=== PATIENT | female | born 1975 | race Caucasian/White ===

== ENCOUNTER → 2018-05-21 09:21 | Outpatient (REF) | payer MEDICAID, SELFPAY ==
[2018-05-21 14:53] LABS: ALT 18 U/L (12-78); AST 17 U/L (15-37); Albumin 3.5 g/dL (3.4-5.0); Alkaline Phosphatase 57 U/L (46-116); Anion Gap 8.1 mmol/L (3-11); BUN 19 mg/dL (7-18); Bilirubin, Total 0.3 mg/dL (0.2-1.0); CO2 24.9 mmol/L (21.0-32.0); CREATININE 0.81 mg/dL (0.55-1.02); Calcium 8.4 mg/dL (8.5-10.1); Chloride 106 mmol/L (98-107); Glucose 85 mg/dL (70-100); Potassium 4.1 mmol/L (3.5-5.1); Sodium 139 mmol/L (136-145); Total Protein 6.3 g/dL (6.4-8.2); Vitamin B12 533 pg/mL (193-986)
== END ==
LOC: NCHCN 09:21
PROVIDERS: PCP Nurse Practitioner Adult Health; Visit Provider Family Medicine
DX: D75.89 Other specified diseases of blood and blood-forming organs (principal); E77.8 Other disorders of glycoprotein metabolism
CPT/HCPCS: 80053; 82607

== ENCOUNTER 2018-06-19 10:04 | Outpatient (CLI) | payer MEDICAID, SELFPAY ==
--- NOTE | 2018-06-19 06:00 | DI.RAD_ITS ---
SYMPTOM/DIAGNOSIS: CERVICAL RADICULOPATHY PAIN CLINIC: Fluoroscopy Time: 19.6 Images submitted from the Pain Clinic demonstrate lower cervical spine in conjunction with an injection carried out by Dr. Earl.
[2018-06-19 10:22] VITALS: BP 105/72; PULSE 69; RESP 18; TEMP 36.7; O2SAT 100
[2018-06-19] MEDS: Midazolam 2 MG/2 ML VIAL IVP (10:46)
[2018-06-19] MEDS: Lactated Ringers 1,000 ML 80 ML IV (10:47)
[2018-06-19 10:53] VITALS: BP 122/74; PULSE 74; RESP 19; O2SAT 100
[2018-06-19] MEDS: Omnipaque 240 MG/ML 50 ML BTL IJ (10:55)
[2018-06-19] MEDS: methylPREDNISolone ACETATE 40 MG/ML VIAL IJ (10:55)
--- NOTE | 2018-06-19 10:57 | PDOC.PAIN ---
Pain Clinic Procedure Note Current Active Problems Problem Status Onset Cervical radicular pain Acute Cervical spondylosis Chronic 02/12/14 Cervical Epidural Steroid Injection KAE NOVAK has been referred to the [facility] for cervical epidural steroid injection. COMMENTS: Patient has had previous cervical epidurals as well as cervical radiofrequency ablations. She thinks the epidurals have worked better than the ablation. Her last injection was at [facility] [place] in [place]. Her pain radiates to her left shoulder. Patient was interviewed and the medical record reviewed. There were no medical, pharmacologic, radiographic or other structural contraindications to attempting fluoroscopically guided epidural steroid injection. Risks and expected side effects as well as potential benefit of the procedure were reviewed and voiced concerns addressed. The printed consent form was signed and witnessed. Standard time-out procedure was performed. The patient was placed in the prone position on the fluoroscopy table and automated blood pressure cuff and pulse oximeter applied. The skin entry point for entering the epidural space by a midline C7-T1 interlaminar approach was identified under fluoroscopy and marked. Following thorough Chlorhexadine preparation of the skin and draping and 1% lidocaine infiltration of the skin entry point and subcutaneous tissues, an 17 gauge Tuohy needle was placed under fluoroscopic guidance and with loss of resistance technique into the epidural space. Upon needle placement and loss of resistance there were no paresthesiae or return of blood or CSF through the needle. An Arrow catheter was thread cephalad to the C5 level {left } of midline. 1ml of Omnipaque 240 were injected with clear epidural spread in the A/P, lateral and oblique views. 80mg Depomedrol with 1ml sterile normal saline were injected through the catheter with no unusual discomfort expressed. Vital signs were stable throughout the procedure and were as recorded in the docflowsheet by the nursing staff. If given, dosages of intravenous drugs for anxiolysis and analgesia were documented in MAR. Follow up plans and appointments were discussed. Post procedure instruction was given as documented in nursing documentation and having met discharge criteria and was discharged from the [facility]. COMMENTS: Versed 1 mg given. She will follow-up as needed. We discussed that before her next injection she will need a updated MRI as her last one is over 4 years old. Her pain is mostly axial with the. I would revisit the idea of radiofrequency ablation again. CC: NICA WILDER
--- NOTE | 2018-06-19 11:01 | PDOC.PAIN_ITS ---
Pain Clinic Procedure Note Current Active Problems Problem Status Onset Cervical radicular pain Acute Cervical spondylosis Chronic 02/12/14 Cervical Epidural Steroid Injection KAE NOVAK has been referred to the [facility] for cervical epidural steroid injection. COMMENTS: Patient has had previous cervical epidurals as well as cervical radiofrequency ablations. She thinks the epidurals have worked better than the ablation. Her last injection was at [facility] [place] in [place]. Her pain radiates to her left shoulder. Patient was interviewed and the medical record reviewed. There were no medical , pharmacologic, radiographic or other structural contraindications to attempting fluoroscopically guided epidural steroid injection. Risks and expected side effects as well as potential benefit of the procedure were reviewed and voiced concerns addressed. The printed consent form was signed and witnessed. Standard time-out procedure was performed. The patient was placed in the prone position on the fluoroscopy table and automated blood pressure cuff and pulse oximeter applied. The skin entry point for entering the epidural space by a midline C7-T1 interlaminar approach was identified under fluoroscopy and marked. Following thorough Chlorhexadine preparation of the skin and draping and 1% lidocaine infiltration of the skin entry point and subcutaneous tissues, an 17 gauge Tuohy needle was placed under fluoroscopic guidance and with loss of resistance technique into the epidural space. Upon needle placement and loss of resistance there were no paresthesiae or return of blood or CSF through the needle. An Arrow catheter was thread cephalad to the C5 level {left } of midline. 1ml of Omnipaque 240 were injected with clear epidural spread in the A/P, lateral and oblique views. 80mg Depomedrol with 1ml sterile normal saline were injected through the catheter with no unusual discomfort expressed. Vital signs were stable throughout the procedure and were as recorded in the docflowsheet by the nursing staff. If given, dosages of intravenous drugs for anxiolysis and analgesia were documented in MAR. Follow up plans and appointments were discussed. Post procedure instruction was given as documented in nursing documentation and having met discharge criteria and was discharged from the [facility]. COMMENTS: Versed 1 mg given. She will follow-up as needed. We discussed that before her next injection she will need a updated MRI as her last one is over 4 years old. Her pain is mostly axial with the. I would revisit the idea of radiofrequency ablation again. CC: NICA WILDER
== END 2018-06-19 10:24 ==
PROVIDERS: PCP Nurse Practitioner Adult Health; Visit Provider Anesthesiology Pain Medicine
DX: M47.22 Other spondylosis with radiculopathy, cervical region (principal); G89.29 Other chronic pain
CPT/HCPCS: 62321; 72040; J1030; J2250; Q9967

== ENCOUNTER 2018-09-30 00:38 | Outpatient (CLI) | payer MEDICAID, SELFPAY ==
--- NOTE | 2018-09-30 09:20 | DI.MAMMO_ITS ---
SYMPTOM/DIAGNOSIS: SCREENING, Z12.31, PREVENTATIVE, Z00.00 MAMMOGRAM: Mammograms were interpreted according to the usual protocol including computer analysis with CAD system, tomosynthesis and C view imaging. Comparison with prior examinations. Breast density C. No suspicious masses or microcalcifications are seen. There is no definite evidence of malignancy. IMPRESSION: Negative mammogram. Routine screening is recommended. Category I. MQSA ASSESSMENT OF FINDINGS: Negative. Category 1. Patient will receive a letter notifying them of these results. Bi-RADS category C. The breasts are heterogeneously dense, which may obscure small masses.
== END 2018-09-30 00:58 ==
PROVIDERS: PCP Family Medicine; Visit Provider Family Medicine
DX: Z12.31 Encounter for screening mammogram for malignant neoplasm of breast (principal); Z00.00 Encounter for general adult medical examination without abnormal findings
CPT/HCPCS: 77063; 77067

== ENCOUNTER 2018-11-11 01:12 | Outpatient (CLI) | payer MEDICAID, SELFPAY ==
--- NOTE | 2018-11-11 08:35 | DI.MRI_ITS ---
SYMPTOM/DIAGNOSIS: CERVICAL SPINE STENOSIS, M48.02, CHRONIC NECK PAIN CERVICAL SPINE MRI: Routine noncontrast examination was performed. Comparison is made with 11/03/15. There is normal signal in the spinal cord. No evidence of tonsillar ectopia is seen. At C 6-7, there is again seen prominence of the osteophyte disc complex resulting in narrowing of the central spinal canal which appears roughly unchanged compared to the prior examination. There is also bilateral neural foraminal stenosis, left greater than right. There is slight progression of the neural foraminal stenosis on the left compared to the prior examination. At C 5-6, there is again seen prominence of the osteophyte disc complex and mild narrowing of the central spinal canal. There are degenerative changes of the facets resulting in bilateral neural foraminal stenosis which is mild to moderate. It appears slightly progressed compared to the prior examination. The remaining disc levels show no focal disc herniation, central spinal canal or neural foraminal stenosis. Mild degenerative endplate signal changes are seen at C 5-6 and C 6-7, otherwise marrow signal is within normal limits. IMPRESSION: C 5-6 and C 6-7 degenerative changes resulting in central spinal canal and neural foraminal stenosis which appears slightly progressed since the prior examination as described above.
== END 2018-11-11 01:32 ==
PROVIDERS: PCP Family Medicine; Visit Provider Family Medicine
DX: M54.2 Cervicalgia (principal); M48.02 Spinal stenosis, cervical region; M47.812 Spondylosis without myelopathy or radiculopathy, cervical region
CPT/HCPCS: 72141

== ENCOUNTER 2019-03-13 00:41 | Outpatient (CLI) | payer MEDICAID, SELFPAY ==
--- NOTE | 2019-03-13 11:36 | DI.MRI_ITS ---
SYMPTOM/DIAGNOSIS: DEGENERATIVE JOINT DISEASE, LUMBAR SPINE, M47.896 LUMBAR MRI: Sagittal T1 and T2 and sagittal STIR, and axial T1, T2 and axial lT2 MSMA pulsed sequences were performed. At L1-2 note is made of diminished signal and disc space narrowing and prominent anterior hypertrophic spurring. There is no evidence of a disc protrusion. There are mild facet joint degenerative changes and no evidence of spinal stenosis. At L2-3 diminished disc signal is again identified and minimal disc bulge is noted. There are moderate facet joint degenerative changes and no evidence of spinal stenosis. At L3-4 a disc bulge is demonstrated. There is severe facet joint DJD and no evidence of spinal stenosis. At L4-5 there is a disc bulge. Severe facet joint DJD is evident and there is prominence of the ligamentum flavum. These findings resulting in moderate bilateral foraminal stenosis. At L5-S1 a disc bulge is also identified. There are moderately severe facet joint degenerative changes and no evidence of significant spinal stenosis. SUMMARY: Findings consistent with degenerative disc disease and DJD with multi- level spinal stenosis.
== END 2019-03-13 01:01 ==
PROVIDERS: PCP Family Medicine; Visit Provider Family Medicine
DX: M47.896 Other spondylosis, lumbar region (principal); M51.36 Other intervertebral disc degeneration, lumbar region
CPT/HCPCS: 72148

== ENCOUNTER 2019-08-05 11:58 | Outpatient (CLI) | payer MEDICAID, SELFPAY ==
[2019-08-05 12:04] VITALS: BP 113/75; PULSE 72; RESP 18; TEMP 36.8; O2SAT 98
--- NOTE | 2019-08-05 12:12 | PDOC.PAIN ---
Pain Clinic Procedure Note Procedure Note Procedure Note: PROCEDURE NOTE Transforaminal Epidural Steroid Injection with Fluoroscopic Guidance at RIGHT L4-5 TFESI Chief Complaint: right leg pain. Pre-operative diagnosis: lumbar radiculopathy Post-operative diagnosis: same as above KAE NOVAK has been referred to the [facility] for Lumbar Transforaminal Epidural Steroid Injection right L4-5 TFESI COMMENTS: Pre-procedure VAS: 6/10 to the right leg. Follow up plan: can repeat injection if this provides significant pain relief, if no pain relief, then follow up with Ms Torres's pain outlined from the last clinic visit. KAE NOVAK was greeted by the nurse who verified patients name and . Patient was then taken to the fluoroscopy suite. KAE was interviewed and the medical record reviewed. There were no medical, pharmacologic, radiographic or other structural contraindications to attempting fluoroscopically guided transforaminal lumbar epidural steroid injection. The risks, benefits, and potential side effects were reviewed with the patient. Risk include, but not limited to, post dural puncture, headache, infection, nerve injury, allergic reaction, possible increase in symptoms over the ensuing 24 to 48 hours, and paralysis. The patient appeared to understand, questions were answered and the patient agreed to proceed. Once I obtained informed verbal consent, the printed consent form was signed by the patient and myself. Standard time-out procedure was performed. TECHNIQUE: After informed written consent was obtained the patient was placed in the prone position. The lumbar spine was prepped with chloraprep and draped. Sterile technique was observed during the entire procedure ( cap, gloves, and mask were worn). Vitals signs were monitored throughout the procedure. The right side was marked with a radioopaque marker. The skin and subcutaneous structures were anesthetized with lidocaine 1% to a total volume of 2 ML at each level. Under fluoroscopic guidance, in ipsilateral oblique view, co-axial approach, 5'' 22 gauge spinal needle(s) were advanced to the base of the L4 pedicle(s). The needle(s) were advanced to the superio-posterior aspect of the neural foramen under lateral view. Oblique and AP views were rechecked. Under AP view Omnipaque 240 1.5 cc's was injected while visualized with fluoroscopy. There was no evidence of intravascular uptake, the epidural space was delineated. 15 mg Dexamethasone was injected after negative aspiration, at each level, followed by lidocaine 1% 1.0-ML at each level. (49 cc of Omnipaque was wasted) Outcome: The patient tolerated the procedure well and had stable vital signs. The patient noted after getting up after the procedure that their right leg pain was at a 1 out of 10 level. Follow up plans and appointments were discussed with KAE . The patient was observed in the pain clinic and then discharged after having met discharge criteria to the care of a otr flatbed company truck driver. The patient received written instructions as documented in nursing records. Disposition: KAE was discharged from the procedure suite without new neurological complaints. Follow-up: Follow up with Ms Torres as scheduled or PRN. I personally performed the entire procedure. SHIRA VALENTINE MD ABPN-subspecialty board certification in Pain Medicine Attending Physician-Pain Management
--- NOTE | 2019-08-05 12:41 | DI.RAD_ITS ---
EXAM: XR PAIN CLINIC LUMBAR SP 2V CLINICAL HISTORY: transforaminal epidural steroid injection, lumbar radiculopathy TECHNIQUE: Realtime digital imaging was performed. Fluoro time: 41.6 sec, 7.61 mGy COMPARISON: No exams were available for comparison FINDINGS: Fluoroscopy was utilized by Dr. Kovacs during the performance of a transforaminal epidural steroid inject ion. Please refer to the procedure report for complete details.
[2019-08-05 12:51] VITALS: BP 128/79; PULSE 80; RESP 19; O2SAT 97
[2019-08-05] MEDS: Omnipaque 240 MG/ML 50 ML BTL IJ (12:53)
[2019-08-05] MEDS: Dexamethasone Sod. Phos./Pres-Free 10 MG/ML VIAL IJ (12:53)
== END 2019-08-05 12:18 ==
PROVIDERS: PCP Family Medicine; Visit Provider Internal Medicine
DX: M54.16 Radiculopathy, lumbar region (principal)
CPT/HCPCS: 64483; 72100; Q9967

== ENCOUNTER 2019-09-29 09:36 | Outpatient (REF) | payer MEDICAID, SELFPAY ==
--- NOTE | 2019-09-29 09:15 | PAPFT_PTH ---
PATIENT: Loly Xie LOC: [facility] U#:[id number] AGE/SX: 44/F ROOM: RE09/29/[address]: Scott Agosto : 1975 BED: DIS: 09/29/2019 SPEC #: [id number] RECD: 09/29/19 12:56 STATUS: LUIZA REQ #: [id number] MATTI: 09/29/19 09:[address]: Scott Agosto DEPT: [facility] Cytology RECD BY: Edelmira Jensen Tissues: 1 - CX/ENDOCX FOR PAP SMEARS Procedures: PAP THIN PREP/UVM Screening HPV DNA PROBE Comments: [id number]
[2019-09-29 12:30] LABS: HCT 41.7 % (36.0-46.0); Mean Corp. HGB Concentration 33.6 g/dL (32.0-36.0); Mean Corpuscular Hemoglobin 31.5 pg (27.0-33.0); Mean Corpuscular Volume 93.7 fL (80-95); Mean Platelet Volume 10.3 fL (8.0-11.0); Platelet Count 293 x1000/uL (130-400); RBC 4.45 m/cumm (4.00-5.20); RBC Distribution Width 12.9 % (11.7-14.6); White Blood Cell Count 6.24 k/cumm (4.4-10.8)
[2019-09-29 13:05] LABS: ALT 19 U/L (14-59); AST 16 U/L (15-37); Albumin 3.6 g/dL (3.4-5.0); Alkaline Phosphatase 58 U/L (46-116); Anion Gap 5.9 mmol/L (3-11); BUN 14 mg/dL (7-18); Bilirubin, Total 0.4 mg/dL (0.2-1.0); CO2 30.1 mmol/L (21.0-32.0); CREATININE 0.82 mg/dL (0.55-1.02); Calcium 8.9 mg/dL (8.5-10.1); Chloride 105 mmol/L (98-107); Glucose 86 mg/dL (74-106); Potassium 4.4 mmol/L (3.5-5.1); Sodium 141 mmol/L (136-145); Total Protein 6.4 g/dL (6.4-8.2)
== END 2019-09-29 09:56 ==
LOC: NCHCN 09:36
PROVIDERS: PCP Family Medicine; Visit Provider Family Medicine
DX: N92.0 Excessive and frequent menstruation with regular cycle (principal); E77.8 Other disorders of glycoprotein metabolism; Z12.4 Encounter for screening for malignant neoplasm of cervix
CPT/HCPCS: 80053; 85027; 88142; 87624

== ENCOUNTER 2020-01-08 01:08 | Outpatient (CLI) | payer MEDICAID, SELFPAY ==
--- NOTE | 2020-01-08 | DI.MAMMO_ITS ---
EXAM: DIAGNOSTIC BILATERAL MAMMO AND US BREAST RT LIMITED CLINICAL HISTORY: RT BREAST LUMP, N63.13 TECHNIQUE: Craniocaudal and mediolateral oblique Full Field Digital Mammography views of the both br easts with Computer Aided Diagnosis followed by Tomosynthesis and right breast ultrasound. COMPARISON: Screening Bilat Mammo from 01/23/2014 Diagnostic Right Mammo from 07/29/2014 MG mammo screening from 09/30/2018 FINDINGS: Mammography/Tomosynthesis: Breast Density - Category B - Scattered areas of fibroglandular density Masses/Architectural Distortion: None seen. Microcalcifictions: No suspicious pleomorphic-type are seen. Skin Thickening/Nipple Retraction: None. Axilla: Unremarkable. No enlarged lymph nodes. Right breast US: Echotexture: Normal appearance of the glandular tissue. Shadowing: No suspicious foci. Cyst: None. Solid lesions: None seen. Ductal dilation: None. IMPRESSION: 1. No evidence of malignancy is noted. 2. Unless there is more urgent need, follow-up screening mammography is recommended, as per [place] [employer] guidelines. BI-RADS Category 1 -Negative mammogram. Breast Density - Category B - Scattered areas of fibroglandular density A negative radiographic report should not delay biopsy if a dominant or clinically suspicious mass is present. Up to ten percent of cancers are not identified on mammography. A negative report may reinforce clinical impression. Adenosis and dense breasts may obscure an underlying neoplasm. False positive reports average 6 to 10%. Patient will receive a letter notifying them of these results.
== END 2020-01-08 01:28 ==
PROVIDERS: PCP Family Medicine; Visit Provider Family Medicine
DX: N63.13 Unspecified lump in the right breast, lower outer quadrant (principal)
CPT/HCPCS: 76642; 77062; 77066; G0279

== ENCOUNTER 2020-01-21 10:09 | Outpatient (CLI) | payer MEDICAID, SELFPAY ==
--- NOTE | 2020-01-21 15:05 | DI.RAD_ITS ---
EXAM: XR CHEST 2V PA LATERAL CLINICAL HISTORY: right chest wall pain, R07.89 TECHNIQUE: 2D digital imaging was performed. COMPARISON: No exams were available for comparison FINDINGS: MEDIASTINUM: Normal. HEART: Normal. PULMONARY VASCULATURE: Normal. LUNGS: Clear. PLEURAL SPACE: No pleural effusion or pneumothorax. BONE:Normal. OTHER FINDINGS:Normal. IMPRESSION: No acute pulmonary findings. DATA REPOSITORY: RADIATION DOSE DELIVERED:
== END 2020-01-21 10:29 ==
PROVIDERS: PCP Family Medicine; Visit Provider Surgery
DX: R07.89 Other chest pain (principal)
CPT/HCPCS: 71046

== ENCOUNTER 2020-08-26 10:24 | Outpatient (CLI) | payer MEDICAID, SELFPAY ==
--- NOTE | 2020-08-26 | DI.RAD_ITS ---
EXAM: XR SACROILIAC JOINTS CLINICAL HISTORY: RT SI JOINT PAIN,M53.3. TECHNIQUE: 2D digital imaging was performed. FINDINGS: There is no evidence of fracture nor diastasis of the symphysis pubis and sacroiliac joints. Symmetr ical mild degenerative changes noted but no obvious radiographic evidence of sacroiliitis. No ankylo sis. Incidentally noted are mild degenerative changes in the facet joints in lower lumbar spine. IMPRESSION: No radiographic evidence of sacroiliitis. No ankylosis. DATA REPOSITORY: RADIATION DOSE DELIVERED:
== END 2020-08-26 10:44 ==
PROVIDERS: PCP Family Medicine; Visit Provider Family Medicine
DX: M53.3 Sacrococcygeal disorders, not elsewhere classified (principal)
CPT/HCPCS: 72202

== ENCOUNTER 2020-09-29 13:42 | Outpatient (CLI) | payer MEDICAID, SELFPAY ==
--- NOTE | 2020-09-29 06:00 | DI.RAD_ITS ---
EXAM: XR PAIN CLINIC LUMBAR SP 2V CLINICAL HISTORY: Dx: Lumbar Radiculopathy TECHNIQUE: 2D and realtime digital imaging was performed. CONTRAST MATERIAL: None. COMPARISON: No exams were available for comparison FINDINGS: Fluoroscopy was provided for Dr. Saxena During the performance of a therapeutic lumbar L4 level injecti on. Please refer to the procedure report for complete details. Fluoro time: 24.3 seconds Cumulative dose: 7.31 mGy IMPRESSION:
[2020-09-29 13:49] VITALS: BP 130/73; PULSE 79; RESP 17; TEMP 36.9; O2SAT 98
[2020-09-29] MEDS: Dexamethasone Sod. Phos./Pres-Free 10 MG/ML VIAL IJ (14:28)
[2020-09-29] MEDS: Omnipaque 240 MG/ML 50 ML BTL IJ (14:29)
--- NOTE | 2020-09-29 14:30 | PDOC.PAIN ---
Pain Clinic Procedure Note Procedure Note Procedure Note: Date of procedure: September 29, 2020 LUMBAR / SACRAL TRANSFORAMINAL INJECTION at the right L4 DX: Lumbosacral radiculopathy KAE NOVAK has been referred to the [facility] for a transforaminal nerve root block and steroid injection. COMMENTS: She last had this procedure on 08/05/19 and had 7-8 months of 95% pain improvement. Patient was interviewed and the medical record reviewed. There were no medical, pharmacologic, radiographic or other structural contraindications to attempting fluoroscopically guided transforaminal nerve root block and epidural steroid injection. Risks and expected side effects as well as potential benefit of the procedure were reviewed and voiced concerns addressed. The printed consent form was signed and witnessed. Standard time-out procedure was performed. Patient was placed in the prone position on the fluoroscopy table and automated blood pressure cuff and pulse oximeter applied. Fluoroscopy was utilized to identify the right L4 neural foramen between L4 and L5. A skin krish was made for the needle insertion site. A Chlorhexadine prep was carried out, and sterile drapes were applied. Local anesthesia was achieved in the skin and subcutaneous tissues. A 22 gauge curved tip spinal needle was then inserted, advanced with fluoroscopic guidance into the neural foramen, confirmed on the lateral view. After negative aspiration, 2 ml of Omnipaque 240 was injected confirming position in A/P and lateral views. This showed a good spread of dye transforaminally into the epidural space. There was no vascular update with contrast injection under continuous fluoroscopy and digital substraction. 15 mg of Dexamethasone was injected, followed by 0.5 ml of 1% Xylocaine flush for the nerve root block, as well. There was no unusual discomfort expressed.The needle was withdrawn. The patient tolerated the procedure well. A Band-Aid was applied. Vital signs were stable throughout the procedure and were as recorded in nursing records. If given, dosages of intravenous drugs for anxiolysis and analgesia were documented in nursing records. Follow up plans and appointments were discussed. Post procedure instruction was given as documented in nursing records and patient was discharged in the care of an identified package car driver. COMMENTS:This procedure can be completed up to 3 times per 12 months. Natanael Saxena DO, MPH Pain Management CC: Scott Agosto
[2020-09-29 14:43] VITALS: BP 129/81; PULSE 76; RESP 17; O2SAT 100
== END 2020-09-29 14:02 ==
PROVIDERS: PCP Family Medicine; Visit Provider Preventive Medicine Occupational Medicine
DX: M54.17 Radiculopathy, lumbosacral region (principal)
CPT/HCPCS: 64483; 72100; Q9967

== ENCOUNTER 2020-09-30 18:30 | Outpatient (REF) | payer MEDICAID, SELFPAY ==
[2020-09-30 13:55] LABS: HCT 39.1 % (36.0-46.0); HGB 13.1 g/dL (11.2-15.7); MCH 31.6 pg (27.0-33.0); MCHC 33.5 % (32.0-36.0); MCV 94.4 fL (80-95); MPV 10.3 fL (8.0-11.0); Platelet Count 317 10^3/uL (130-400); RBC 4.14 10^6/uL (3.93-5.22); RDW 12.3 % (11.7-14.6); RDW-SD 42.9 fL; WBC 16.37 10^3/uL (4.4-10.8)
[2020-09-30 14:27] LABS: Hemoglobin A1C 5.5 % (<5.7)
[2020-09-30 14:38] LABS: Anion Gap 12.3 mmol/L (3-11); BUN 17 mg/dL (7-18); CO2 22.7 mmol/L (21.0-32.0); CREATININE 0.83 mg/dL (0.55-1.02); Chloride 107 mmol/L (98-107); Glucose 86 mg/dL (74-106); Potassium 3.8 mmol/L (3.5-5.1); Sodium 142 mmol/L (136-145)
== END 2020-09-30 18:50 ==
LOC: NCHCN 18:30
PROVIDERS: PCP Family Medicine; Visit Provider Family Medicine
DX: K92.1 Melena (principal); M47.896 Other spondylosis, lumbar region; Z13.1 Encounter for screening for diabetes mellitus
CPT/HCPCS: 80048; 85027; 83036

== ENCOUNTER 2020-10-18 17:53 | Outpatient (REF) | payer MEDICAID, SELFPAY ==
[2020-10-18 13:16] LABS: Abs Immature Grans 0.02 10^3/uL (0.0-0.06); Absolute Basophil Count 0.03 10^3/uL (0.0-0.2); Absolute Eosinophil Count 0.06 10^3/uL (0.0-0.7); Absolute Lymphocyte Count 1.94 10^3/uL (1.2-3.4); Absolute Monocyte Count 0.62 10^3/uL (0.1-0.8); Absolute Neutrophil Count 5.01 10^3/uL (1.2-6.7); Basophils % 0.4; Eosinophils % 0.8; HCT 37.5 % (36.0-46.0); HGB 12.5 g/dL (11.2-15.7); Immature Grans % 0.3; Lymphocytes % 25.3; MCH 31.5 pg (27.0-33.0); MCHC 33.3 % (32.0-36.0); MCV 94.5 fL (80-95); MPV 9.6 fL (8.0-11.0); Monocytes % 8.1; Neutrophils % 65.1; Nucleated RBC 0 %; Platelet Count 275 10^3/uL (130-400); RBC 3.97 10^6/uL (3.93-5.22); RDW 12.7 % (11.7-14.6); RDW-SD 44.5 fL; WBC 7.68 10^3/uL (4.4-10.8)
[2020-10-18 13:29] LABS: ALT 24 U/L (14-59); AST 16 U/L (15-37); Albumin 3.5 g/dL (3.4-5.0); Alkaline Phosphatase 60 U/L (46-116); Anion Gap 6.6 mmol/L (3-11); BUN 20 mg/dL (7-18); Bilirubin, Total 0.4 mg/dL (0.2-1.0); C-Reactive Protein 0.06 mg/dL (0.0-0.3); CO2 27.4 mmol/L (21.0-32.0); CREATININE 0.73 mg/dL (0.55-1.02); Calcium 8.8 mg/dL (8.5-10.1); Chloride 104 mmol/L (98-107); Glucose 94 mg/dL (74-106); Sodium 138 mmol/L (136-145); Total Protein 6.4 g/dL (6.4-8.2)
== END 2020-10-18 18:13 ==
LOC: LBN 17:53
PROVIDERS: PCP Family Medicine; Visit Provider Surgery
DX: R10.13 Epigastric pain (principal); Z12.11 Encounter for screening for malignant neoplasm of colon
CPT/HCPCS: 80053; 85025; 86140

== ENCOUNTER 2020-10-19 03:09 | Outpatient (CLI) | payer MEDICAID, SELFPAY ==
[2020-10-20 18:35] LABS: COVID-19 RT-PCR UVMMC Result Negative (Negative)
== END 2020-10-19 03:29 ==
PROVIDERS: PCP Family Medicine; Visit Provider Surgery
DX: Z11.52 Encounter for screening for COVID-19 (principal); Z01.818 Encounter for other preprocedural examination
CPT/HCPCS: U0003

== ENCOUNTER 2020-10-22 13:07 | Day surgery (SDC) | payer MEDICAID, SELFPAY ==
[2020-10-22 13:37] VITALS: BP 119/83; PULSE 85; RESP 20; TEMP 36.1; O2SAT 98
[2020-10-22] MEDS: Lactated Ringers 1,000 ML 80 ML IV (14:14)
--- NOTE | 2020-10-22 14:40 | STOM_PTH ---
PATIENT: Loly Xie LOC: [facility] U#:[id number] AGE/SX: 45/F ROOM: RE10/22/[address]: Radha Hathaway : 1975 BED: DIS: 10/22/2020 SPEC #: [id number] RECD: 10/22/20 17:37 STATUS: LUIZA RE #: [id number] MATTI: 10/22/20 14:[address]: Radha Hathaway DEPT: Surgical Specimen RECD BY: Edelmira Jensen ENTERED: 10/22/20 17:38 SP TYPE: STOMACH OTHR DR: Scott Agosto Tissues: 1 - BIOPSY BOWEL 2 - STOMACH BIOPSY 3 - STOMACH BIOPSY 4 - ESOPHAGUS BIOPSY 5 - ESOPHAGUS BIOPSY 6 - BIOPSY BOWEL Procedures: GROSS AND MICRO LEVEL 4 Comments: [id number]
--- NOTE | 2020-10-22 15:08 | W.PM.DSUDISC ---
Discharge Plan Disposition Patient Disposition: HOME Condition: Good Discharge Details Reason For Visit: stomach and colon scope Attending Provider: Radha Hathaway Primary Care Provider: Scott Agosto Home Meds and New Rx's Prescriptions: New pantoprazole [Protonix] 40 mg tablet,delayed release (DR/EC) 40 mg PO DAILY Qty: 30 RF: 12 Continued baclofen 10 mg tablet 10 mg PO QID RF: 0 cholecalciferol (vitamin D3) 10 mcg (400 unit) capsule 10 mcg PO DAILY RF: 0 magnesium 250 mg tablet 500 mg PO DAILY RF: 0 nabumetone 500 mg Tablet 500 mg PO BID RF: 0 clonazepam 0.5 mg tablet 0.5 mg PO BID PRNRF: 0 sucralfate [Carafate] 1 gram tablet 1 g PO QACHS Qty: 90 RF: 12 (DME) Asthma Check Meter 1 EACH device 1 ea Miscellaneous RF: 0 valacyclovir [Valtrex] 500 MG tablet 500 mg PO DAILY RF: 0 epinephrine [EpiPen 2-Asad] 0.3 MG/0.3 ML auto-injector 0.3 mg IM ONCE RF: 0 SPACER 1 ea RF: 0 albuterol sulfate 8.5 GM HFA aerosol inhaler 2 puff Inhalation Q 4-6 RF: 0 loratadine 10 mg tablet 10 mg PO PRN RF: 0 Denavir 1 % cream 1 applic topical Q2H RF: 0 naltrexone 50 mg tablet 50 mg PO BID RF: 0 zolpidem [Ambien] 10 mg tablet 10 mg PO PRN RF: 0 tretinoin 0.05 % cream 1 applic topical QHS RF: 0 Discontinued polyethylene glycol 3350 17 gram/dose powder 238 g PO ONCE Qty: 238 RF: 0 bisacodyl [Dulcolax (bisacodyl)] 5 mg tablet,delayed release (DR/EC) 5 mg PO ONCE Qty: 4 RF: 0 omeprazole 20 mg capsule,delayed release(DR/EC) 20 mg PO DAILY RF: 0 ascorbic acid (vitamin C) [Vitamin C] 500 mg Tablet 500 mg PO DAILY RF: 0 Discharge Instructions Additional Instructions: Findings:mild gastritis- probably from ibuprofen stop ibuprofen. Continue with lifestyle modifications: no alcohol, tobacco products, Aspirin or NSAID's (ibuprofen, Motrin, Naprosyn, aleve, etc), soda pop/any carbonated beverages. Try to limit caffeine (including tea & chocolate)to only 1-2 cups per day. Do not drink coffee on an empty stomach. Try to avoid and acidic foods, (tomatoes, citrus, onions, peppermints) spicy foods. Do not lie down for 30 minutes after eating, and do not eat 2 hours prior to bedtime. Avoid wearing tight fitting clothing/ belts Follow up: nl colon. repeat colonoscopy in ten yrs time we will send a letter w/ the Biopsy results in 2-3 wks Please call if you develop: fevers >101.5 Nausea or Vomiting Abdominal pain that is not transient DAY SURGERY UNIT POST COLONOSCOPY INSTRUCTIONS 1. Because there will be medication in your system for the next 24 hours, you may feel a little sleepy. Your coordination will be affected. Therefore: a. Do not drive or operate dangerous equipment for 24 hours. b. Do not drink alcohol beverages for 24 hours (not even beer). c. Plan to go home and rest for the day. 2. Generally there are no restrictions on your activity after a day or so has gone by, but you may feel a bit fatigued for a few days. 3 After you arrive home you may have a light meal and return to a normal diet as you can tolerate it without feeling sick to your stomach. 4. After surgery, you may feel pain or discomfort. This should be only transient, but if it persists please contact your doctor. 5. If there are any questions regarding the findings of your procedure, please feel free to contact your doctor. 6. If you are unable to contact your doctor with a problem, contact the hospital at [phone]. 7. Continue all your regular medications unless directed otherwise. I understand the above instructions and have no questions. Signature of Patient or Responsible Adult Escort Date/Time Name of Responsible Adult Escort Signature of Nurse Date/Time Activity:: No lifting over 20 pounds or strenuous activity x24 hours. Diet:: Small light meals x24 hours. Discharge Orders Discharge Orders: Discharge Order (Routine); Ordered 10/22/20 Ordered By: Radha Hathaway DS: Diagnosis Discharge Diagnosis (1) Gastritis determined by endoscopy: Status: Acute
[2020-10-22 15:45] VITALS: BP 127/85; PULSE 72; RESP 18; TEMP 36.5; O2SAT 100
--- NOTE | 2020-10-25 12:59 | W.PM.ENDDOP ---
Date of service: 10/22/20 Time of Service: 15:00 Endoscopy Report DATE OF PROCEDURE: 10/22/20 PRE-OP DIAGNOSIS: abdominal pain POST-OP DIAGNOSIS: other (gastritis from nsaid's ) SURGEON: Radha Hathaway ANESTHESIA: MAC ESTIMATED BLOOD LOSS: 0 PATHOLOGY: other DISPOSITION: same day PROCEDURE DESCRIPTION: After informed consent was obtained the patient was take to the procedure room and placed in a supine position. Monitors were applied and a time out was done. The patients name, date of , procedure type, allergies to medications and metal in their body was reviewed. A bite block was placed and the patient was sedated. Once sedated and comfortable the gastroscope was advanced through the oropharynx which was grossly normal into the esophagus. The proximal and mid-esophagus were nl. In the distal esophagus there was nl noted. The scope was advanced into the stomach and through the pylorus into the 3rd portion of the duodenum. The duodenum was noted to be nl. Biopsies were done . All specimens are retrieved and no bleeding is noted. The scope was retracted back into the stomach and biopsies were done to rule out H. pylori. She does have some mild gastritis radiating out from antrum in a striped fashion. She has 3 small punctate ulcers that look to be mostly healed. She has been on a PPI for some time. The scope was retroflexed. The cardia and fundus were noted to be normal. There no a hiatal hernia noted. The scope was retracted back into the esophagus and biopsies were done of the GE junction to rule out Rock's. The Z line was regular. The GE junction was at 38 cm. The scope was removed and the patient was woken up and taken back to [facility] in stable condition.
--- NOTE | 2020-10-25 13:03 | COLE_ITS ---
Date of service: 10/22/20 Time of Service: 15:00 Colonoscopy Report Date of procedure: 10/22/20 Pre-op diagnosis general: CRC screen Post-op diagnosis procedure note: same Surgeon: Radha Hathaway Anesthesia proc note operative: MAC Estimated blood loss (mL): 0 Pathology: other Complications: None Disposition: same day Prep: Miralax/Dulcolax Retraction Time: 8 mins Procedure Description: After informed consent was obtained the patient was taken to the procedure room and placed in a left decubitous position. Monitors were applied and a time out was done. The patients name, date of , procedure, allergies to medications and metal in their body was reviewed. The patient was then sedated. Once sedated and comfortable a rectal exam was done. External exam was normal. Internal exam revealed a normal sphincter tone and no palpable masses. The scope was then introduced and retrofelexed. no internal hemorrhoids were identified. The scope was then advanced to the cecum w/out difficulty. The TI and appendiceal orifice were identified. The prep was good. The scope was then slowly retracted over 8 minutes back into the rectum. There are no polyps, AVM's, or diverticula visualized today. The mucosa is pink and healthy. The scope was removed and the patient was woken up and taken back to Same day surgery in stable condition. The patient tolerated the procedure well and there were no immediate comp lications. Follow up: The patient should follow up in 10 years unless they develop changes in bowel habits or other new gastrointestinal complaints.
== END 2020-10-22 16:20 | disposition home or self-care (01) ==
PROVIDERS: PCP Family Medicine; Visit Provider Surgery
PROC: (CPT 43239; principal; 2020-10-22 12:45)
DX: Z12.11 Encounter for screening for malignant neoplasm of colon (principal); R10.9 Unspecified abdominal pain; K29.60 Other gastritis without bleeding; T39.395A Adverse effect of other nonsteroidal anti-inflammatory drugs [NSAID], initial encounter; K25.7 Chronic gastric ulcer without hemorrhage or perforation; K21.9 Gastro-esophageal reflux disease without esophagitis
CPT/HCPCS: 43239; 45378; 81025; 88305; J2001

== ENCOUNTER 2020-11-09 10:01 | Outpatient (CLI) | payer MEDICAID, SELFPAY ==
--- NOTE | 2020-11-09 06:00 | DI.RAD_ITS ---
EXAM: XR PAIN CLINIC SACRIOILIAC 2V CLINICAL HISTORY: DX: Sacro Illiac Joint Dysfunction TECHNIQUE: 2D and realtime digital imaging was performed. COMPARISON: No exams were available for comparison FINDINGS: C-arm fluoroscopy was utilized by Dr. Saxena during right SI joint injection. Hard copy shows successf ul right SI joint injection. Fluoro time, 19 seconds. IMPRESSION: RADIATION DOSE DELIVERED: Total DLP
[2020-11-09 10:11] VITALS: BP 111/80; PULSE 78; RESP 18; TEMP 36.6; O2SAT 100
--- NOTE | 2020-11-09 11:02 | PDOC.PAIN_ITS ---
Pain Clinic Procedure Note Procedure Note Procedure Note: Date of service: 11/09/20 INTRA-ARTICULAR SI JOINT INJECTION KAE NOVAK has been referred to the [facility] for intra- articular SI joint injection. COMMENTS: She was last evaluated in our clinic on 09/14/20 where is was found that she is likely suffering from two separate issues. I did complete a right L4-L5 transforaminal ALEX on 09/29/20 which relieved a lot of her right leg pain, but she continues to have pain in the right sacroiliac joint. Today's injection will attempt to address the sacroiliac joint pain issue. She understands. DX: Sacroiliac joint dysfunction Patient was interviewed and the medical record reviewed. There were no medical, pharmacologic, radiographic or other structural contraindications to attempting fluoroscopically guided intra-articular SI joint injection. Risks and expected side effects as well as potential benefit of the procedure were reviewed and voiced concerns addressed. The printed consent form was signed and witnessed. Standard time-out procedure was performed. Patient was placed in the prone position on the fluoroscopy table and automated blood pressure cuff and pulse oximeter applied. The skin entry point for approaching right SI joint was identified under the most advantageous fluoroscopic view and marked. Following thorough Chlorhexadine preparation of the skin and draping and 1% lidocaine infiltration of the skin entry point and subcutaneous tissues, a 22 gauge 3.5 spinal needle was placed under fluoroscopic guidance into right SI joint was identified under the most advantageous fluoroscopic view and marked. Intra-articular placement was confirmed by a clear arthrogram resulting from the injection of 0.25ml Omnipaque 240, 1ml 1% lidocaine, and 80 mg Depomedrol were injected intra-articularily with an initial reproduction of a significant component of the usual pain. Vital signs were stable throughout the procedure and were as recorded in the docflowsheet by the nursing staff. If given, dosages of intravenous drugs for anxiolysis and analgesia were documented in MAR. Follow up plans and appointments were discussed with the patient. Post procedure instruction was given as documented in nursing documentation and having met discharge criteria, and was discharged from the [facility] Center. COMMENTS: Her post-operative pain to the right SIJ area was 0/10. If this procedure is found to be helpful, it can be completed up to 3 times per 12 months. Natanael Saxena DO, MPH Pain Management CC: Scott Agosto
[2020-11-09 11:06] VITALS: BP 130/92; PULSE 78; RESP 18; O2SAT 100
[2020-11-09] MEDS: Omnipaque 240 MG/ML 50 ML BTL IJ (11:08)
[2020-11-09] MEDS: methylPREDNISolone ACETATE 80 MG/ML VIAL (11:08)
== END 2020-11-09 10:02 | disposition home or self-care (01) ==
LOC: PC 10:01
PROVIDERS: PCP Family Medicine; Visit Provider Preventive Medicine Occupational Medicine
DX: M53.3 Sacrococcygeal disorders, not elsewhere classified (principal)
CPT/HCPCS: 27096; 72200; J1040; Q9967

== ENCOUNTER 2021-05-31 02:47 | Outpatient (CLI) | payer MEDICAID, SELFPAY ==
--- NOTE | 2021-05-31 | DI.MRI_ITS ---
Exam(s) MR LUMBAR SPINE WO EXAM: MR LUMBAR SPINE WO CLINICAL HISTORY: DEGENERATIVE JOINT DISEASE,M47.896,SPINAL STENOSIS,BUTTOCK AND LEG PAIN TECHNIQUE: Multiplanar multisequence MRI of the Lumbar Spine was performed. CONTRAST MATERIAL: Noncontrast FINDINGS: Bones: The last intervertebral disc space is designated the L5/S1 level for the numbering purpose of this examination. The vertebral body heights are well maintained. Alignment is satisfactory. The sig nal characteristics are unremarkable. Cord: The conus tip ends at the T12 level. It is of normal size and signal intensity. T12-L1: No disc herniations or bulges are present. L1-2: Moderate to severe loss of disc height. Endplate osteophytes projecting mainly anteriorly. Mil d posteriorly projecting disc osteophytes. No significant central canal stenosis or neural foraminal narrowing. L2-3: Mild concentric but disc bulging. Mild facet degenerative changes. No significant neural fora yovany narrowing or central canal stenosis. L3-4: Moderate loss of disc height. Broad-based concentric disc bulging. Facet degenerative changes and ligamentous hypertrophy combine to produce mild central canal stenosis as well as mild bilateral neural foraminal narrowing. L4-5: Mild broad-based disc bulging. Facet degenerative changes and ligamentous hypertrophy producin g moderate central canal stenosis and moderate bilateral neural foraminal narrowing. L5-S1: Normal disc height. Mild disc bulging. Facet degenerative changes. No significant central c anal stenosis or neural foraminal narrowing. Soft tissues: The visualized SI joints and sacrum are well maintained. The paraspinal soft tissues ar e unremarkable. Aorta is normal in diameter. IMPRESSION: Multilevel degenerative disc changes and facet degenerative changes, greatest at L3-4 where there is moderate central canal stenosis stenosis and moderate bilateral neural foraminal narrowing. No focal disc herniation at any level. DATA REPOSITORY:
== END 2021-05-31 03:07 ==
PROVIDERS: PCP Family Medicine; Visit Provider Family Medicine
DX: M47.896 Other spondylosis, lumbar region (principal); M99.73 Connective tissue and disc stenosis of intervertebral foramina of lumbar region; M51.36 Other intervertebral disc degeneration, lumbar region
CPT/HCPCS: 72148

== ENCOUNTER 2021-10-03 17:43 | Outpatient (REF) | payer MEDICAID, SELFPAY ==
[2021-10-03 16:29] LABS: Abs Immature Grans 0.02 10^3/uL (0.0-0.06); Absolute Basophil Count 0.05 10^3/uL (0.0-0.2); Absolute Eosinophil Count 0.07 10^3/uL (0.0-0.7); Absolute Lymphocyte Count 1.75 10^3/uL (1.2-3.4); Absolute Neutrophil Count 4.37 10^3/uL (1.2-6.7); Basophils % 0.7; HGB 12.7 g/dL (11.2-15.7); Immature Grans % 0.3; Lymphocytes % 25.9; MCH 31.3 pg (27.0-33.0); MCHC 32.6 % (32.0-36.0); MCV 96.1 fL (80-95); MPV 10.1 fL (8.0-11.0); Monocytes % 7.4; Neutrophils % 64.7; Nucleated RBC 0 %; Platelet Count 270 10^3/uL (130-400); RBC 4.06 10^6/uL (3.93-5.22); RDW 12.9 % (11.7-14.6); RDW-SD 46.1 fL; WBC 6.76 10^3/uL (4.4-10.8)
[2021-10-03 17:05] LABS: TSH (W/Ref FT4) 1.27 uIU/mL (0.36-3.74)
== END 2021-10-03 17:44 | disposition home or self-care (01) ==
LOC: NCHCN 17:43
PROVIDERS: PCP Family Medicine; Visit Provider Family Medicine
DX: N95.1 Menopausal and female climacteric states (principal)
CPT/HCPCS: 84443; 85025

== ENCOUNTER 2021-12-06 01:04 | Outpatient (CLI) | payer MEDICAID, SELFPAY ==
[2021-12-06] MEDS: Albuterol HFA 18 GM 200 PUFF INH IH (14:32)
[2021-12-06] MEDS: Inhaler, Assist Device 1 EACH MC (14:32)
== END 2021-12-06 01:05 | disposition home or self-care (01) ==
LOC: RT 01:04
PROVIDERS: PCP Family Medicine; Visit Provider Family Medicine
DX: R06.02 Shortness of breath (principal)
CPT/HCPCS: 94060; 94726; 94729

== ENCOUNTER 2021-12-20 01:52 | Outpatient (CLI) | payer MEDICAID, SELFPAY ==
--- NOTE | 2021-12-20 | DI.MAMMO_ITS ---
Exam(s) MAMMO SCREENING EXAM: MAMMO SCREENING CLINICAL HISTORY: SCREENING FOR BREAST CANCER Z12.39 TECHNIQUE: Bilateral full field digital CC and MLO mammographic images were obtained with 3D tomosyn thesis and utilizing computer aided detection (CAD). COMPARISON: Available for comparison. FINDINGS: Masses/Architectural Distortion: None seen. Microcalcifications: No suspicious pleomorphic-type are seen. Skin Thickening/Nipple Retraction: None. IMPRESSION: 1. No significant interval change with no specific features of malignancy noted. 2. Unless there is more urgent need, screening mammography is recommended, as per [employer] guidelines. BI-RADS Category 1 - Negative Breast Density - Category C - Heterogeneously dense Breast density category C or D implies that the patient has dense breast tissue. Dense breast tissue is very common and is not abnormal but dense breast tissue can make it harder to find cancer on a ma mmogram. Also, dense breast tissue may increase their breast cancer risk. This information about the result of the mammogram report was provided to the patient to raise their awareness. Use this report when you speak with the patient about their risks for breast cancer, which includes their family hist ory. At that time, you may recommend for more screening tests (Ultrasound or MRI) as they might be us eful based on their risk. A negative radiographic report should not delay biopsy if a dominant or clinically suspicious mass is present. Up to ten percent of cancers are not identified on mammography. A negative report may reinforce clinical impression. Adenosis and dense breasts may obscure an underlying neoplasm. False positive reports average 6 to 10%. Patient will receive a letter notifying them of these results.
== END 2021-12-20 02:12 ==
PROVIDERS: PCP Family Medicine; Visit Provider Family Medicine
DX: Z12.31 Encounter for screening mammogram for malignant neoplasm of breast (principal)
CPT/HCPCS: 77063; 77067

== ENCOUNTER → 2022-01-24 01:14 | Outpatient (CLI) | payer MEDICAID, SELFPAY ==
--- NOTE | 2022-01-24 08:00 | ETT_ITS ---
APPROVED REPORT Exam: Exercise Treadmill Patient Location: Out-Patient Room/Bed: Stress Nurse: Berenice Medeiros RN Ordering Provider:DAVID CURTIS, Contact Number: [phone] BMI: 24.20 Baseline Rhythm: Sinus Rhythm Indications: AVILES, Active female with normal PFT's Medical History Medical History: GERD, Osteoarthritis, DJD, Depression Cardiac Medications: Pantoprazole, albuterol sulfate Allergies: Codeine, Hydrocodone, Bupropion, Bee Cardiac Risk Factors: Asthma Previous Cardiac Procedures: None Pretest Chest Pain Characteristics: None Exercise History: Physically active Physical Disabilities: None Lung Sounds: Clear Heart Sounds: Regular Stress Test Details Test: Exercise stress testing was performed using a Christiano protocol. Rest Stress HR Resting HR Supine: 62 bpm Max Heart Rate (APMHR): 172 bpm Resting HR Standin bpm Target HR (85% APMHR): 146 bpm Max HR Achieved: 169 bpm % of APMHR: 98 Recovery HR: 77 bpm HR response to stress: Normal HR response to stress BP Resting BP Supine: 122/78 mmHg Resting BP Standin/68 mmHg Max BP: 150/72 mmHg Recovery BP: 120/74 mmHg BP response to stress: Normal blood pressure response to stress. ECG Resting ECG: Sinus Rhythm Ectopy: Rare PAC Stress ECG: Sinus Tachycardia ST Change: None Arrhythmia: None Recovery ECG: Sinus Rhythm Recovery ST Change: None Recovery Arrhythmia: None Clinical Reason for Termination: Fatigue, Dyspnea Stress Symptoms: Dyspnea Exercise duration: 11 min13 sec Highest Stage Reached: Stage 4: 4.2 mph at 16% grade. Exercise capacity: 13.48 METs Angina Score: None Smith Treadmill Score: 10 Rate Pressure Product: [id number] Stress ECG Conclusion 1. The resting electrocardiogram was within normal limits 2. The patient exercised on the Christiano protocol and completed a workload of 13.48 METS, stopping due t o shortness of breath 3. Normal heart rate and blood pressure response to exercise. The patient achieved 98% of predicted heart rate for age 4. There was no electrocardiographic evidence of myocardial ischemia 5. There were no significant dysrhythmias Smith Treadmill Score is 10 which is Low risk. Stress Test Summary STAGE Time (mins) Speed (mph) Grade (%) HR BP SYMPTOMS METS Supine 62 122/78 SP02 98% Standing 83 108/68 1 3 1.7 10 104 118/64 SP02 98% 4.6 2 6 2.5 12 129 122/62 SP02 98% 7 3 9 3.4 14 148 132/60 SP02 98% 10.2 4 12 4.2 16 167 SP02 98%, Moderate SOB 12.9 1 min recovery 133 140/64 3 min recovery 90 150/72 SP02 98% 6 min recovery 77 120/74
== END ==
PROVIDERS: PCP Family Medicine; Visit Provider Family Medicine
DX: R06.09 Other forms of dyspnea (principal)
CPT/HCPCS: 93017

== ENCOUNTER 2022-09-27 14:59 | Outpatient (CLI) | payer MEDICAID, SELFPAY ==
--- NOTE | 2022-09-27 06:00 | DI.RAD_ITS ---
Exam(s) XR PAIN CLINIC FLUORO JOINT IN EXAM: XR PAIN CLINIC FLUORO JOINT IN CLINICAL HISTORY: Dx: Ischial Bursitis-right side. TECHNIQUE: Fluoroscopy was provided for the referring physician for guidance with performing pain cl inic injection procedure. COMPARISON: No exams were available for comparison FINDINGS: Please see procedure note for details. Fluoro time: 19.2 seconds RADIATION DOSE DELIVERED: Abrilr=2.71 mGy
[2022-09-27 15:40] VITALS: BP 123/76; PULSE 78; RESP 20; TEMP 36.7; O2SAT 96
--- NOTE | 2022-09-27 16:05 | PDOC.PAIN ---
Date of service: 09/27/22 Time of Service: 16:24 Pain Clinic Procedure Note Procedure Note Procedure Note: RIGHT ISCHIAL BURSA INJECTION Loly Xie has been referred to the [facility] Management Center for a RIGHT ischiogluteal bursa injection. COMMENTS: She was previously evaluated in our office. Pre-procedure pain VAS to the right lower buttock was 6/10. Dx: Right ischiogluteal bursitis Patient was interviewed and the medical record reviewed. There were no medical, pharmacologic, radiographic or other structural contraindications to attempting fluoroscopically guided right ischial bursa injection. Risks and expected side effects as well as potential benefit of the procedure were reviewed and voiced concerns addressed. The printed consent form was signed and witnessed. Standard time-out procedure was performed. Patient was placed in the prone position on the fluoroscopy table and automated blood pressure cuff and pulse oximeter applied. Fluoroscopy was utilized to identify the right Ischial bursa. A skin krish was made for the needle insertion site. A Chlorhexadine prep was carried out, and sterile drapes were applied. Local anesthesia was achieved in the skin and subcutaneous tissues. A 22 gauge curved tip spinal needle was then inserted, advanced with fluoroscopic guidance to the ischial bursa. After negative aspiration, 1 ml of Omnipaque 240 was injected confirming position in A/P views. This showed a good spread of dye. There was no vascular update with contrast injection under continuous fluoroscopy. 40 mg of Depomedrol was injected, followed by 2 ml of 1% Xylocaine flush for the nerve root block, as well. There was no unusual discomfort expressed.The needle was withdrawn. The patient tolerated the procedure well. A Band-Aid was applied. Vital signs were stable throughout the procedure and were as recorded in nursing records. If given, dosages of intravenous drugs for anxiolysis and analgesia were documented in nursing records. Follow up plans and appointments were discussed. Post procedure instruction was given as documented in nursing records and patient was discharged in the care of an identified transit bus driver. COMMENTS: Post-procedure pain VAS was 0/10. This procedure can be completed up to 3 times per 12 months if it is found to be helpful. Natanael Saxena DO, MPH [facility]-Pain Management [facility]-Center for [facility] Management CC: Scott Agosto
[2022-09-27] MEDS: methylPREDNISolone ACETATE 40 MG/ML VIAL IJ (16:09)
[2022-09-27 16:21] VITALS: PULSE 72; RESP 18; O2SAT 99
[2022-09-27] MEDS: Omnipaque 240 MG/ML 50 ML BTL IJ (16:27)
== END 2022-09-27 15:00 | disposition home or self-care (01) ==
LOC: PC 14:59
PROVIDERS: PCP Family Medicine; Visit Provider Preventive Medicine Occupational Medicine
DX: M70.71 Other bursitis of hip, right hip (principal)
CPT/HCPCS: 20611; 77002; J1030; Q9967

== ENCOUNTER 2022-10-11 10:00 | Outpatient (REF) | payer MEDICAID, SELFPAY ==
[2022-10-11 16:38] LABS: ALT 18 U/L (14-59); AST 18 U/L (15-37); Albumin 3.7 g/dL (3.4-5.0); Alkaline Phosphatase 73 U/L (46-116); Bilirubin, Total 0.5 mg/dL (0.2-1.0); Calculated LDL 111 mg/dL (<100); Cholesterol 187 mg/dL (<200); HDL Cholesterol 65 mg/dL (40-60); Magnesium 1.7 mg/dL (1.8-2.4); Total Protein 6.4 g/dL (6.4-8.2); Triglyceride 55 mg/dL (<150); Vitamin B12 1429 pg/mL (193-986)
[2022-10-11 17:02] LABS: Bilirubin, Direct 0.2 mg/dL (0.0-0.2)
== END 2022-10-11 10:01 | disposition home or self-care (01) ==
LOC: NCHCN 10:00
PROVIDERS: PCP Family Medicine; Visit Provider Family Medicine
DX: K21.9 Gastro-esophageal reflux disease without esophagitis (principal); D75.89 Other specified diseases of blood and blood-forming organs; E78.00 Pure hypercholesterolemia, unspecified; E77.8 Other disorders of glycoprotein metabolism; E53.8 Deficiency of other specified B group vitamins
CPT/HCPCS: 80061; 80076; 82607; 83735

== ENCOUNTER → 2023-06-29 01:01 | Outpatient (CLI) | payer MEDICAID, SELFPAY ==
--- NOTE | 2023-06-29 08:38 | DI.RAD_ITS ---
Exam(s) XR FOOT LT COMPLETE EXAM: XR FOOT LT COMPLETE CLINICAL HISTORY: LEFT FOOT PAIN M79.672 TENDERNESS BASE OF LEFT 5TH METATARSAL. TECHNIQUE: 2D digital imaging was performed. Three views. COMPARISON: No exams were available for comparison FINDINGS: BONES: No acute fracture is present. No bony destructive lesion is seen. JOINTS: No dislocation present. No significant degenerative changes. SOFT TISSUE: Normal. IMPRESSION: Unremarkable radiographs of the left foot. DATA REPOSITORY: RADIATION DOSE DELIVERED:
== END ==
PROVIDERS: PCP Family Medicine; Visit Provider Family Medicine
DX: M79.672 Pain in left foot (principal)
CPT/HCPCS: 73630

== ENCOUNTER 2023-10-15 16:53 | Outpatient (REF) | payer MEDICAID, SELFPAY ==
[2023-10-15 15:57] LABS: Magnesium 1.9 mg/dL (1.8-2.4)
[2023-10-15 16:15] LABS: Hemoglobin A1C 5.4 % (<5.7)
[2023-10-15 16:23] LABS: Vitamin D 25 Total 69.6 ng/mL (30-100)
== END 2023-10-15 16:54 | disposition home or self-care (01) ==
LOC: NCHCN 16:53
PROVIDERS: PCP Family Medicine; Visit Provider Family Medicine
DX: E55.9 Vitamin D deficiency, unspecified (principal); E83.42 Hypomagnesemia; R73.09 Other abnormal glucose
CPT/HCPCS: 82306; 83036; 83735

== ENCOUNTER → 2023-12-12 04:18 | Outpatient (CLI) | payer MEDICAID, SELFPAY ==
--- NOTE | 2023-12-12 | DI.MAMMO_ITS ---
Exam(s) MAMMO SCREENING EXAM: MAMMO SCREENING CLINICAL HISTORY: SCREENING,Z12.31 TECHNIQUE: Mammograms were interpreted according to the usual protocol including computer analysis w [employer] CAD system, tomosynthesis and C-view imaging. COMPARISON: 2013 through 2021 FINDINGS: The breasts are composed of scattered fibroglandular densities, Breast Density category B. No suspicious masses or suspicious microcalcifications are seen. No skin thickening or abnormal axillary lymph nodes are seen. There has been no significant change from prior exams. IMPRESSION: BI-RADS Category 1, Negative mammogram Yearly screening mammography is recommended. Breast Density - Category B, scattered fibroglandular densities. A negative radiographic report should not delay biopsy if a dominant or clinically suspicious mass is present. Up to ten percent of cancers are not identified on mammography. A negative report may reinforce clinical impression. Adenosis and dense breasts may obscure an underlying neoplasm. False positive reports average 6 to 10%. Patient will receive a letter notifying them of these results.
== END ==
PROVIDERS: PCP Family Medicine; Visit Provider Family Medicine
DX: Z12.31 Encounter for screening mammogram for malignant neoplasm of breast (principal)
CPT/HCPCS: 77063; 77067

== ENCOUNTER → 2024-01-01 04:06 | Outpatient (CLI) | payer MEDICAID, SELFPAY ==
--- NOTE | 2024-01-01 07:30 | DI.MRI_ITS ---
Exam(s) MR LOWER JOINT LT WO EXAM: MR LOWER JOINT LT WO CLINICAL HISTORY: peroneal tendinitis,lt foot pain,m79.672,m76.72 TECHNIQUE: Multiplanar multisequence MRI was performed without intravenous contrast. COMPARISON: CR XR FOOT LT COMPLETE from 06/29/2023 FINDINGS: BONES/JOINTS: No fracture or contusion pattern. No bone lesions identified. The talar dome is smooth. The ankle mortise is maintained. No joint effusion is present. LIGAMENTS: The tibiofibular and calcaneofibular ligaments are intact. The talofibular ligaments are i ntact. The deltoid ligament is intact. The syndesmosis is unremarkable. Sinus tarsi is normal. MUSCULOTENDINOUS STRUCTURES: Achilles tendon: Unremarkable. Plantar fascia: Unremarkable. Anterior Extensor tendons: Unremarkable. Posterior Tibialis: Unremarkable. Flexor Digitorum longus: Unremarkable. Flexor Hallucis longus: Unremarkable. Peroneus longus: Unremarkable. Peroneus brevis:Unremarkable. SOFT TISSUES: Unremarkable. OTHER FINDINGS: None. IMPRESSION: Unremarkable MRI of the left ankle. DATA REPOSITORY:
== END ==
PROVIDERS: PCP Family Medicine; Visit Provider Podiatrist
DX: M76.72 Peroneal tendinitis, left leg (principal); M79.672 Pain in left foot
CPT/HCPCS: 73721

== ENCOUNTER 2024-02-15 11:47 | Outpatient (REF) | payer MEDICAID, SELFPAY ==
[2024-02-15 15:49] LABS: ESR 4 mm/hr (0-20)
[2024-02-15 15:51] LABS: Abs Immature Grans 0.02 10^3/uL (0.0-0.06); Absolute Basophil Count 0.03 10^3/uL (0.0-0.2); Absolute Eosinophil Count 0.09 10^3/uL (0.0-0.7); Absolute Lymphocyte Count 1.82 10^3/uL (1.2-3.4); Absolute Monocyte Count 0.42 10^3/uL (0.1-0.8); Absolute Neutrophil Count 3.38 10^3/uL (1.2-6.7); Basophils % 0.5 %; Eosinophils % 1.6 %; HCT 41.9 % (36.0-46.0); HGB 13.7 g/dL (11.2-15.7); Immature Grans % 0.3 %; Lymphocytes % 31.6 %; MCH 30.1 pg (27.0-33.0); MCHC 32.7 % (32.0-36.0); MCV 92 fL (80-95); MPV 10.1 fL (8.0-11.0); Monocytes % 7.3 %; Neutrophils % 58.7 %; Platelet Count 286 10^3/uL (130-400); RBC 4.55 10^6/uL (3.93-5.22); RDW 11.9 % (11.7-14.6); RDW-SD 40.9 fL; WBC 5.76 10^3/uL (4.4-10.8)
[2024-02-15 16:37] LABS: C-Reactive Protein < 0.50 mg/dL (<or=0.5)
[2024-02-15 21:53] LABS: Rheumatoid Factor <8.6 IU/mL (<12.0)
[2024-02-18 09:34] LABS: Anaplasma phagocytophilum Negative (Negative); B. miyamotoi PCR Negative (Negative); Babesia divergens/MO-1 Negative (Negative); Babesia duncani Negative (Negative); Babesia microti Negative (Negative); Ehrlichia chaffeensis Negative (Negative); Ehrlichia ewingii/canis Negative (Negative); Ehrlichia muris eauclairensis Negative (Negative)
[2024-02-18 13:57] LABS: Lyme Ab w Rflx to Lyme Confirm Negative (Negative)
[2024-02-18 15:56] LABS: ANA Interpretation Negative (Negative)
== END 2024-02-15 11:48 | disposition home or self-care (01) ==
LOC: NCHCN 11:47
PROVIDERS: PCP Nurse Practitioner Family; Visit Provider Nurse Practitioner Family
DX: M25.59 Pain in other specified joint (principal)
CPT/HCPCS: 85652; 87798; 85025; 86038; 86140; 86431; 86618

== ENCOUNTER → 2024-03-04 04:13 | Outpatient (CLI) | payer MEDICAID, SELFPAY ==
--- NOTE | 2024-03-04 | DI.MRI_ITS ---
Exam(s) MR UPPER JOINT LT WO EXAM: MR UPPER JOINT LT WO CLINICAL HISTORY: PAIN LT SHOULDER,M25.512,REDUCED RANGE OF MOTION,SUSPECT BICEPS TENDONITIS. TECHNIQUE: Multiplanar multisequence MRI was performed. COMPARISON: No exams were available for comparison FINDINGS: BONES: There is no fracture or contusion pattern. JOINTS: There are mild degenerative changes seen at the acromioclavicular joint. There is thinning o f the articular cartilage at the glenohumeral joint. TENDONS: Supraspinatus: Unremarkable. Infraspinatus: There is tendinosis of the infraspinatus tendon without evidence of a tear. Subscapularis: Subscapularis tendinosis without evidence of a tear. Teres Minor: Unremarkable. Biceps and Cherokee: There is intermediate signal and mild thickening seen in the long head of the velia ps consistent with tendinitis. MUSCLES: Unremarkable. GLENOID LABRUM: Portions of the posterior superior labrum are absent. There is also degeneration see n of the superior labrum posteriorly. SOFT TISSUES: Unremarkable. LIGAMENTS: Unremarkable. OTHER: There is a small amount of fluid seen in the subacromial subdeltoid bursa. IMPRESSION: 1. No evidence of a rotator cuff tear. 2. Tendinosis of the infraspinatus, subscapularis and biceps tendon. 3. Degeneration of the posterior superior labrum. 4. Small amount of fluid in the subacromial subdeltoid bursa. 5. Mild degenerative changes seen at the acromioclavicular joint and the glenohumeral joint. DATA REPOSITORY:
== END ==
PROVIDERS: PCP Nurse Practitioner Family; Visit Provider Nurse Practitioner Family
DX: M25.512 Pain in left shoulder (principal)
CPT/HCPCS: 73221

== ENCOUNTER 2024-03-19 11:18 | Outpatient (REF) | payer MEDICAID, SELFPAY ==
--- NOTE | 2024-03-19 10:30 | PAPFT_PTH ---
PATIENT: Loly Xie LOC: [facility]#:[id number] AGE/SX: 48/F ROOM: RE03/19/[address]: Lubna Bauer : 1975 BED: DIS: 03/19/2024 SPEC #: [id number] RECD: 03/19/24 18:16 STATUS: LUIZA REQ #: [id number] MATTI: 03/19/24 10:[address]: Lubna Bauer DEPT: [facility] Cytology RECD BY: Edelmira Jensen Tissues: 1 - CX/ENDOCX FOR PAP SMEARS Procedures: PAP THIN PREP/[facility] Screening HPV DNA PROBE Comments: [id number] (HPV 16 & 18/45)
== END 2024-03-19 11:19 | disposition home or self-care (01) ==
LOC: NCHCN 11:18
PROVIDERS: PCP Nurse Practitioner Family; Visit Provider Nurse Practitioner Family
DX: Z12.4 Encounter for screening for malignant neoplasm of cervix (principal)
CPT/HCPCS: 88142; 87624

== ENCOUNTER 2024-12-09 16:35 | Outpatient (REF) | payer MEDICAID, SELFPAY ==
[2024-12-09 20:25] LABS: Abs Immature Grans 0.02 10^3/uL (0.0-0.06); Absolute Basophil Count 0.03 10^3/uL (0.0-0.2); Absolute Eosinophil Count 0.03 10^3/uL (0.0-0.7); Absolute Lymphocyte Count 1.53 10^3/uL (1.2-3.4); Absolute Monocyte Count 0.47 10^3/uL (0.1-0.8); Absolute Neutrophil Count 4.34 10^3/uL (1.2-6.7); Basophils % 0.5 %; Eosinophils % 0.5 %; HCT 39.3 % (36.0-46.0); HGB 12.9 g/dL (11.2-15.7); Immature Grans % 0.3 %; Lymphocytes % 23.8 %; MCH 30.4 pg (27.0-33.0); MCHC 32.8 % (32.0-36.0); MCV 93 fL (80-95); MPV 10.2 fL (8.0-11.0); Monocytes % 7.3 %; Neutrophils % 67.6 %; Platelet Count 298 10^3/uL (130-400); RBC 4.25 10^6/uL (3.93-5.22); RDW 13.6 % (11.7-14.6); RDW-SD 46.1 fL; WBC 6.42 10^3/uL (4.4-10.8)
[2024-12-09 20:48] LABS: ALT 27 U/L (14-59); AST 22 U/L (15-37); Alkaline Phosphatase 99 U/L (46-116); Anion Gap 9.8 mmol/L (3-11); BUN 22 mg/dL (7-18); Bilirubin, Total 0.4 mg/dL (0.2-1.0); CO2 27.2 mmol/L (21.0-32.0); CREATININE 0.7 mg/dL (0.55-1.02); Calcium 9.1 mg/dL (8.5-10.1); Calculated LDL 114 mg/dL (<100); Chloride 107 mmol/L (98-107); Cholesterol 194 mg/dL (<200); Estimated GFR 104.65 (mL/min/1.73m2); Glucose 93 mg/dL (74-106); HDL Cholesterol 69 mg/dL (>or=50); Magnesium 1.9 mg/dL (1.8-2.4); Potassium 4.6 mmol/L (3.5-5.1); Sodium 144 mmol/L (136-145); TSH (W/Ref FT4) 1.22 uIU/mL (0.36-3.74); Total Protein 6.6 g/dL (6.4-8.2); Triglyceride 57 mg/dL (<150)
== END 2024-12-09 16:36 | disposition home or self-care (01) ==
LOC: NCHCN 16:35
PROVIDERS: PCP Nurse Practitioner Family; Visit Provider Nurse Practitioner Family
DX: R53.83 Other fatigue (principal); F41.9 Anxiety disorder, unspecified; E83.42 Hypomagnesemia; Z13.220 Encounter for screening for lipoid disorders
CPT/HCPCS: 80053; 80061; 83735; 84443; 85025

== ENCOUNTER 2024-12-30 00:54 | Outpatient (CLI) | payer MEDICAID, SELFPAY ==
--- NOTE | 2024-12-30 | DI.MAMMO_ITS ---
Exam(s) MAMMO SCREENING EXAM: MAMMO SCREENING CLINICAL HISTORY: SCREENING, Z12.31 TECHNIQUE: Mammograms were interpreted according to the usual protocol including computer analysis w [employer] CAD system, tomosynthesis and C-view imaging. COMPARISON: 2018 through 2023 FINDINGS: The breasts are composed of scattered fibroglandular densities, Breast Density category B. No suspicious masses or suspicious microcalcifications are seen. No skin thickening or abnormal axillary lymph nodes are seen. There has been no significant change from prior exams. IMPRESSION: BI-RADS Category 1, Negative mammogram Yearly screening mammography is recommended. Breast Density - Category B, scattered fibroglandular densities. A negative radiographic report should not delay biopsy if a dominant or clinically suspicious mass is present. Up to ten percent of cancers are not identified on mammography. A negative report may reinforce clinical impression. Adenosis and dense breasts may obscure an underlying neoplasm. False positive reports average 6 to 10%. Patient will receive a letter notifying them of these results.
== END 2024-12-30 01:14 ==
LOC: DI 00:55
PROVIDERS: PCP Nurse Practitioner Family; Visit Provider Nurse Practitioner Family
DX: Z12.31 Encounter for screening mammogram for malignant neoplasm of breast (principal); R92.323 Mammographic fibroglandular density, bilateral breasts
CPT/HCPCS: 77063; 77067

== ENCOUNTER 2025-05-05 03:32 | Outpatient (CLI) | payer MEDICAID, SELFPAY ==
[2025-05-05 14:56] LABS: Anion Gap 6.6 mmol/L (3-11); BUN 23 mg/dL (7-18); CO2 28.4 mmol/L (21.0-32.0); Calcium 8.7 mg/dL (8.5-10.1); Chloride 105 mmol/L (98-107); Estimated GFR 108.61 (mL/min/1.73m2); Glucose 99 mg/dL (74-106); Potassium 3.8 mmol/L (3.5-5.1); Sodium 140 mmol/L (136-145)
== END 2025-05-05 03:33 | disposition home or self-care (01) ==
LOC: LBO 03:32
PROVIDERS: PCP Nurse Practitioner Family; Visit Provider Student in an Organized Health Care Education/Training Program
DX: R42 Dizziness and giddiness (principal)
CPT/HCPCS: 36415; 80048

== ENCOUNTER 2025-05-26 10:27 | Outpatient (CLI) | payer MEDICAID, SELFPAY ==
--- NOTE | 2025-05-26 | DI.MRI_ITS ---
Exam(s) MR IAC BRAIN WO/W EXAM: MR IAC BRAIN WO/W CLINICAL HISTORY: RECURRENT VERTIGO,R42,NAUSEA,EAR FULLNESS,RINGING,VESTIBULAR MIGRAINE,?. TECHNIQUE: Multiplanar multisequence MRI of the brain and internal auditory canals was performed. CONTRAST MATERIAL: IV Contrast: 12 mL of Dotarem contrast administered. COMPARISON: No exams were available for comparison FINDINGS: VENTRICLES AND EXTRA AXIAL SPACES: Normal in size and morphology for the patient's age. HEMORRHAGE: None. CEREBRAL PARENCHYMA: No focus of restricted diffusion to suggest acute infarct. No space-occupying lesion identified. No abnormal high signal lesions in the white matter. MIDLINE SHIFT: None. BRAINSTEM/CEREBELLUM: Normal. CALVARIUM: Normal. ENHANCEMENT: No suspicious enhancement identified. VISUALIZED PARANASAL SINUSES/MASTOIDS: Clear. ORBITS: Unremarkable. Artifact from mascara. IAC/CP ANGLE: The internal auditory canals are within normal limits. The cerebellar pontine angles are unremarkable. No enhancing lesions are seen. Visualized portions of the cranial nerves appear within normal limits. IMPRESSION: Unremarkable MRI of the brain and internal auditory canals. DATA REPOSITORY:
[2025-05-26] MEDS: Normal Saline Flush 10 ML SYR IVP (10:33)
[2025-05-26] MEDS: Gadoterate meglumine 20 ML VIAL IVP (10:33)
== END 2025-05-26 10:47 ==
LOC: DI 10:28
PROVIDERS: PCP Student in an Organized Health Care Education/Training Program; Visit Provider Student in an Organized Health Care Education/Training Program
DX: R42 Dizziness and giddiness (principal)
CPT/HCPCS: 70553